=== PATIENT | female | born 1980 | race Two or more races ===

== ENCOUNTER 2018-06-23 10:07 | Outpatient (CLI) | payer OTHER | END 2018-06-23 10:24 | disposition home or self-care (01) | LOC: SONOGRAMA 10:07 → RX STUDY 10:07 | DX: N97.8 Female infertility of other origin (principal) ==

== ENCOUNTER 2022-05-04 14:30 | Emergency (ER) | payer OTHER ==
[~2022-05-04] VITALS: Ht 172.7 cm; Wt 90.7 kg
[~2022-05-04 14:30] MED LIST: LABETALOL HCL100 MG PO
[2022-05-04] MEDS ORDERED: LABETALOL HCL100 MG PO (15:01)
== END 2022-05-04 19:45 | disposition home or self-care (01) ==
LOC: ER 14:30
DX: U07.1 COVID-19 (principal)